=== PATIENT | male | born 1950 | race Caucasian/White ===

== ENCOUNTER 2025-04-26 08:13 | Emergency (ER) | payer MEDICARE, SELFPAY ==
--- NOTE | ~2025-04-26 | XR_ITS ---
EXAMINATION: XR chest 2V DATE: 04/26/2025 09:07 INDICATION: One week of cough TECHNIQUE: PA and lateral views of the chest were obtained. COMPARISON: Chest radiograph dated 02/04/2013 FINDINGS: Unchanged calcified nodule at the lateral right upper lung zone consistent with old granulomatous disease. The lungs are otherwise clear with no focal airspace opacities, pulmonary edema, pleural effusion or pneumothorax. The cardiomediastinal silhouette is normal. Mild thoracic spondylosis. IMPRESSION: 1. No acute cardiopulmonary disease. Reviewed, dictated and finalized at location A. [facility]
--- NOTE | 2025-04-26 08:14 | ED_ITS ---
HPI - URI/Sore Throat General Chief Complaint: Upper Respiratory Infection Stated Complaint: Cold Symptoms Time Seen by Provider: 04/26/25 08:42 Source: patient, RN notes reviewed and old records reviewed Mode of arrival: ambulatory Limitations: no limitations History of Present Illness HPI Narrative: 74-year-old male presents to the [facility] with complaints of cold-like symptoms. Reports a scratchy throat, runny nose and cough. Symptoms started about 7-10 days ago. States over last couple days it is getting worse. Denies having fevers. Denies chest pain or shortness of breath. Has been taking Mucin ex DM, Robitussin, ibuprofen as well as Tessalon Perles Onset (ago): day(s) (7-10) Treatments prior to arrival: ibuprofen and cold medicine Related Data Allergies Allergy/AdvReac Type Severity Reaction Status Date / Time diclofenac Allergy Unknown EARS RED, Verified 04/26/25 08:23 HOT SKIN AFTER TAKING Review of Systems Review of Systems: All systems reviewed & are unremarkable except as noted in HPI and below Constitutional: Constitutional: Reports no additional constitutional complaints ENT: Reports as per HPI, Reports nasal discharge and Reports sore throat Cardiovascular: Cardiovascular: Reports no additional cardiovascular complaints, Denies chest pain and Denies dyspnea Respiratory: Respiratory: Reports as per HPI, Denies chest congestion, Reports cough and Denies dyspnea Musculoskeletal: Musculoskeletal: Reports no additional musculoskeletal complaints Integumentary/Breasts: Skin/Breast: Reports system reviewed and no additional complaints, except as docu PMFSH Past Medical History Medical History (Updated 04/26/25 @ 09:54 by Melissa Damon APRN) Dyslipidemia Diverticulitis GERD (gastroesophageal reflux disease) Gout Surgical History Surgical History History of right hip replacement History of knee replacement procedure of right knee History of knee replacement procedure of left knee History of tonsillectomy History of arthroplasty of left hip Family History Family History Father Alzheimer's disease Mother No problems noted. Sibling No problems noted. Mother Breast cancer Sibling Myocardial infarction Social History Social History Smoking status: Never smoker Second hand tobacco smoke exposure: No Alcohol intake: current Alcohol use details: socially Substance use: never Substance use type: does not use Living arrangements: with family Occupation/Education: retired Gender identity (if verbalized by the patient): Male Sexual Orientation (if Verbalized by the Patient): Straight or Heterosexual Spiritual care concerns: No Agree to blood products: Yes Comments At the time of my signature, I reviewed and agree with the nursing past medical, surgical, social, and family history. There is no relevant family history pertinent to the patient complaint. Exam Const: General: cooperative, healthy appearing, comfortable, no acute distress, well developed, alert and well nourished Nutritional Appearance: well nourished Orientation/consciousness: patient oriented x3 Limitations: no limitations HENMT: Head: normal to inspection Ears: hearing grossly normal bilaterally, external ears normal, TM's normal bilaterally, EAC's normal, mastoids normal and no periauricular adenopathy Mouth: Yes Normal oral and palatal mucosa present, Yes lip normal, Yes tongue normal and Yes moist mucous membranes Throat: posterior oropharynx normal, uvula midline, postnasal drainage and no uvular edema Eyes: General: appearance normal, both eyes and all related structures Alignment and Position: alignment normal Neck: Neck: normal visual inspection, full ROM, no lymphadenopathy and no meningeal signs Chest: Chest palpation & inspection: normal inspection of the chest Resp: Effort & Inspection: normal respiratory effort and able to speak in complete sentences Auscultation: clear to auscultation bilaterally, no crackles, no rales, no rhonchi, no wheezes and diminished lung sounds on the right ( middle to lower) Cardio: Rate: regular rate Skin: General skin exam: normal color and no rashes or lesions noted Neuro: General: patient oriented x3, gait normal, moves all extremities and no meningeal signs Cognition (Neuro): normal cognition Speech: normal speech Gait exam (Neuro): Normal gait present Extrem: General: normal to inspection, full ROM, capillary refill normal and normal gait Psych: Appearance: grossly normal and well kempt Mental Status: mental status grossly normal Speech and movement: Normal speech and movement present and Clear speech present Affect: normal affect Attitude: cooperative Course Course Level of Care: Express Care Visit Vital Signs Vital signs: Vital Signs Oxygen Delivery Room Air 04/26/25 08:19 Temperature 98.9 F 04/26/25 08:23 Pulse Rate 80 04/26/25 08:23 Respiratory Rate 16 04/26/25 08:23 Blood Pressure 160/91 H 04/26/25 08:23 Pulse Oximetry 98 04/26/25 08:23 Oxygen Delivery Room Air 04/26/25 08:23 reviewed MDM MDM Narrative Medical decision making narrative: patient presents to the [facility] with his . Patient is nontoxic, vitals are stable, except blood pressure mildly elevated. Discussed the importance of following up with primary care provider for further evaluation, recheck. Patient presents for 7-10 days of cold-like symptoms, runny nose, scratchy throat and cough. States of last couple of days it has been getting worse. Patient and both concern he might have pneumonia, she was diagnosed about a week ago. X-ray showed no pneumonia. Due to length of symptoms and patient's age will cover with doxycycline, discussed appropriate aguw-eij-ewcdiyj products as well as using Flonase nasal spray and nasal irrigation. Patient is appropriate for outpatient treatment with close follow-up Discharge instructions reviewed with patient, as well as provided in writing per nursing staff. The instructions also include specific and strict return/GO TO THE ER as well as f/u information. All questions have been answered, and the patient deny any further questions with discharge and discharge plan. Some parts of this dictation were generated by voice recognition software and may contain typographical and/or grammatical inaccuracies. Differential Diagnosis Differential Diagnosis: Differential diagnostic considerations for upper respiratory infection include upper respiratory infection, croup, otitis media, sinusitis, viral infection, bronchitis, influenza, pharyngitis, strep, uvulitis.? Medical Records I have reviewed the following patient records and this information was taken into consideration when formulating the assessment and plan.: previous labs and previous clinic visits Imaging Data Radiologist's impression: ITS Impressions Chest X-Ray 04/26/25 09:10 IMPRESSION: 1. No acute cardiopulmonary disease. EXAMINATION: XR chest 2V DATE: 04/26/2025 09:07 INDICATION: One week of cough TECHNIQUE: PA and lateral views of the chest were obtained. COMPARISON: Chest radiograph dated 02/04/2013 FINDINGS: Unchanged calcified nodule at the lateral right upper lung zone consistent with old granulomatous disease. The lungs are otherwise clear with no focal airspace opacities, pulmonary edema, pleural effusion or pneumothorax. The cardiomediastinal silhouette is normal. Mild thoracic spondylosis. IMPRESSION: 1. No acute cardiopulmonary disease. Discharge Plan Discharge Clinical Impression: Bronchitis Upper respiratory infection Qualifiers: URI type: unspecified viral URI Qualified Code(s): J06.9 - Acute upper respiratory infection, unspecified Patient Disposition: Home Condition: Stable Instructions: Antibiotic Form, Bronchiolitis (ED), Upper Respiratory Infection (ED), Postnasal Drip (DC) Additional Instructions: your x-ray did not show signs of a pneumonia. Today your blood pressure was 160/91. Please follow-up with your primary care provider within 2 weeks to have this rechecked. It is very important to treat your symptoms. Drink plenty of water, Gatorade, Pedialyte, ice pops or Jell-O. -Alternate Tylenol and Motrin per package directions for fever or pain. You can alternate every 4 hours -Antihistamine medication such as Zyrtec/Claritin during the day can help improve symptoms. -doing daily nasal irrigations can help relieve pressure your sinuses. Things like a Neti pot Or Navage -Use Flonase twice a day for 5 days then daily to help reduce the inflammation and dry up your sinuses. -You can also use Mucinex. Be sure to drink plenty of water with this medication at least 8 ounces with every dose and it is important to drink 8 to 10 glasses of water per day. Water is a natural decongestant -Eat and drink things that are easy to swallow, like tea or soup, or popsicles. -Oral rinses such as: Salt water gargles and/or may use topical anesthetic (eg. Chloraseptic spray) or lozenges to relieve dryness or throat pain). -Frequent hand washing or hand dental prosthetist is one of the best ways to prevent spread of infection. -Using a vaporizer or humidifier at night will also help thin secretions and help with coughing up phlegm. -Follow up with primary care provider in 7-10 days if condition is not improving - For new or worsening symptoms go directly to the nearest ER Patient Language: Chilean Prescriptions: New doxycycline monohydrate 100 mg tablet 100 mg PO BID Qty: 14 0RF No Action allopurinol 300 mg tablet 300 mg PO DAILY Qty: 90 2RF Follow-up/Referrals: UNKNOWN,DOCTOR [Non-Staff] Time of Disposition: 09:26
[2025-04-26 08:23] VITALS: BP 160/91; PULSE 80; RESP 16; TEMP 37.2; O2SAT 98
== END 2025-04-26 09:30 | disposition home or self-care (01) ==
PROVIDERS: Emergency Provider Nurse Practitioner; PCP Student in an Organized Health Care Education/Training Program
DX: J40 Bronchitis, not specified as acute or chronic (principal); J06.9 Acute upper respiratory infection, unspecified; E78.5 Hyperlipidemia, unspecified; K21.9 Gastro-esophageal reflux disease without esophagitis; M10.9 Gout, unspecified; Z96.653 Presence of artificial knee joint, bilateral; Z96.643 Presence of artificial hip joint, bilateral
CPT/HCPCS: 71046; 99213; G0463